=== PATIENT | female | born 1995 | race Hispanic/Latino ===

== ENCOUNTER 2018-11-04 02:37 | Emergency (ER) | payer MEDICAID, OTHER ==
[2018-11-04] MEDS ORDERED: SODIUM CHLORIDE 0.9% 1000ML 1,000 ML IV ONE ×2 (02:47→03:56)
[2018-11-04] MEDS ORDERED: ONDANSETRON HCL 4 MG/2 ML VIAL ONE (02:47)
[2018-11-04 03:15] LABS: APPEARANCE,URINE Cloudy (CLEAR); BILIRUBIN,URINE Negative (NEGATIVE); COLOR,URINE Yellow (YELLOW); GLUCOSE, URINE (UA) Negative (NEGATIVE); KETONES,URINE Negative (NEGATIVE); LEUKOCYTE ESTERASE ,URINE Moderate (NEGATIVE); NITRATE,URINE Negative (NEGATIVE); OCCULT BLOOD,URINE Negative (NEGATIVE); PH,URINE 5.5 (5.0-8.0); PROTEIN,URINE Negative (NEGATIVE)
[2018-11-04 03:17] LABS: HCG,QUAL RESULT NEGATIVE (NEGATIVE)
[2018-11-04 03:20] LABS: BACTERIA,URINE Few /HPF (None Seen); RBC,URINE None Seen /HPF (0-1)
[2018-11-04 03:20] LABS: BASOPHILS % (AUTO) 0.2 % (0.0-5.0); EOSINOPHILS % (AUTO) 0.6 % (0.0-8.0); HEMATOCRIT 42.2 % (36-48); LYMPHOCYTES % (AUTO) 10.7 % (21.0-51.0); MEAN CORPUSCULAR HGB CONC 33.8 g/dL (32.0-36.0); MEAN CORPUSCULAR VOLUME 88.6 fL (79-99); MONOCYTES % (AUTO) 4.8 % (3.0-13.0); NEUTROPHILS % (AUTO) 83.7 % (40.0-77.0); PLATELET COUNT (AUTO) 283 K/uL (130-400); RED BLOOD CELL COUNT(AUTO) 4.77 MIL/uL (4.00-5.50); RED CELL DISTRIBUTION WIDTH 13.7 % (11.0-15.5); WHITE BLOOD COUNT (AUTO) 16.2 K/uL (4.8-10.8)
[2018-11-04 03:21] LABS: SQUAMOUS EPITHELIAL CELL,UR Moderate /HPF (0-2)
[2018-11-04 03:23] LABS: CREATININE 0.7 mg/dL (0.5-1.5); POTASSIUM 4.5 mmol/L (3.5-5.1)
[2018-11-04 03:28] LABS: ALBUMIN 3.9 g/dL (3.5-5.0); BILIRUBIN,TOTAL 0.5 mg/dL (0.2-1.0); TOTAL PROTEIN, SERUM 8.7 g/dL (6.0-8.3)
[2018-11-04] MEDS ORDERED: LEVOFLOXACIN 500 MG TABLET ONE (03:56)
== END 2018-11-04 04:48 | disposition home or self-care (01) ==
LOC: EDH 02:37
DX: K52.9 Noninfective gastroenteritis and colitis, unspecified (principal); Z88.0 Allergy status to penicillin; Z72.0 Tobacco use; Z98.51 Tubal ligation status
CPT/HCPCS: 36415; 80053; 81001; 81025; 83690; 85025; 96361; 96374; 99284; J2405; J7030 ×2

== ENCOUNTER 2019-04-06 13:42 | Emergency (ER) | payer SELFPAY | END 2019-04-06 15:24 | disposition home or self-care (01) | LOC: EDH 13:42 | DX: J02.9 Acute pharyngitis, unspecified (principal); Z88.0 Allergy status to penicillin; Z72.0 Tobacco use | CPT/HCPCS: 87880 ==

== ENCOUNTER 2019-06-12 23:22 | Emergency (ER) | payer OTHER ==
[2019-06-13] MEDS ORDERED: IBUPROFEN 200 MG TAB ONE (00:46)
[2019-06-13] MEDS ORDERED: IBUPROFEN 400 MG TABLET ONE (00:46)
[2019-06-13] MEDS ORDERED: ONDANSETRON ODT 4 MG TAB ONE (00:46)
[2019-06-13] MEDS ORDERED: ASPIRIN 325 MG TABLET ONE (01:22)
[2019-06-13 01:46] LABS: BASOPHILS % (AUTO) 0.4 % (0.0-5.0); EOSINOPHILS % (AUTO) 0.7 % (0.0-8.0); LYMPHOCYTES % (AUTO) 11.5 % (21.0-51.0); MEAN CORPUSCULAR HEMOGLOBIN 28.6 pg (27.0-33.0); MEAN CORPUSCULAR HGB CONC 32.5 g/dL (32.0-36.0); MEAN CORPUSCULAR VOLUME 88.1 fL (79-99); MONOCYTES % (AUTO) 8.7 % (3.0-13.0); NEUTROPHILS % (AUTO) 77.4 % (40.0-77.0); PLATELET COUNT (AUTO) 250 K/uL (130-400); RED BLOOD CELL COUNT(AUTO) 4.54 MIL/uL (4.00-5.50); RED CELL DISTRIBUTION WIDTH 13.8 % (11.0-15.5); WHITE BLOOD COUNT (AUTO) 9.6 K/uL (4.8-10.8)
[2019-06-13 02:02] LABS: INR 0.95 (0.85-1.15); PARTIAL THROMBOPLASTIN TIME 29.2 SEC (26.3-35.5)
[2019-06-13 02:08] LABS: RAPID GROUP A STREP NEGATIVE (NEGATIVE)
[2019-06-13 02:49] LABS: CREATININE 0.7 mg/dL (0.5-1.5); POTASSIUM 3.8 mmol/L (3.5-5.1)
[2019-06-13 02:55] LABS: ALBUMIN 3.4 g/dL (3.5-5.0); BILIRUBIN,TOTAL 0.3 mg/dL (0.2-1.0); TOTAL PROTEIN, SERUM 7.8 g/dL (6.0-8.3)
== END 2019-06-13 04:36 | disposition home or self-care (01) ==
LOC: EDH 23:22
DX: J09.X2 Influenza due to identified novel influenza A virus with other respiratory manifestations (principal); Z88.0 Allergy status to penicillin; Z98.51 Tubal ligation status; Z72.0 Tobacco use
CPT/HCPCS: 36415; 71046; 80053; 82550; 84484; 85025; 85610; 85730; 87804; 87880; 93005

== ENCOUNTER 2021-12-09 06:19 | Emergency (ER) | payer OTHER ==
[2021-12-09] MEDS ORDERED: AZIT250T PO (07:55)
[2021-12-09] MEDS ORDERED: ACET160L45 PO (07:55)
[2021-12-09] MEDS ORDERED: AZITHROMYCIN 200 MG/ 5 ML BTL PO SCH (08:00)
[2021-12-09] MEDS ORDERED: ACETAMINOPHEN 160 MG/5ML UDCUP PO ONE (08:00)
[2021-12-09 08:18] VITALS: BP 129/87
== END 2021-12-09 08:35 | disposition home or self-care (01) ==
LOC: EDH 06:19
DX: J03.90 Acute tonsillitis, unspecified (principal); Z20.822 Contact with and (suspected) exposure to COVID-19; F17.200 Nicotine dependence, unspecified, uncomplicated; Z88.0 Allergy status to penicillin
CPT/HCPCS: 87635; 87804; 87880; C9803; J3490